=== PATIENT | male | born 1980 | race Caucasian/White ===

== ENCOUNTER 2020-03-30 02:34 | Emergency (ER) | payer BC ==
[~2020-03-30] VITALS: Ht 185.4 cm; Wt 108.9 kg
[~2020-03-30 02:34] MED LIST: FLEXERIL PO; FLOMAX0.4 MG PO; HYDROCODONE-APA1 TA1 PO; NOHOMEMEDICATIONS; NORCO 5-325 TA1 EACH PO; PEPCID AC20 M1 PO; ZOFRAN ODT4 MG PO
[2020-03-30 03:01] LABS: ABSOLUTE BASOPHILS 0.1 thou/uL (0.0-0.2); ABSOLUTE EOSINOPHILS 0.1 thou/uL (0.0-0.7); ABSOLUTE LYMPHOCYTES 2.6 thou/uL (0.8-5.3); ABSOLUTE MONOCYTES 0.8 thou/uL (0.0-1.2); ABSOLUTE NEUTROPHILS 8.8 thou/uL (1.6-8.1); BASOPHILS 0.7 %; EOSINOPHILS 0.9 %; HEMATOCRIT 48.8 % (42.0-52.0); HEMOGLOBIN 17.3 gm/dL (14.0-18.0); LYMPHOCYTES 21.2 %; MCH 31.7 pg (26.0-34.0); MCHC 35.5 g/dL (28.0-37.0); MCV 89.2 fL (80.0-100.0); MONOCYTES 6.3 %; MPV 7.5 fl. (7.2-11.1); NUCLEATED RBCS 0 /100WBC; PLATELET COUNT* 348 thou/uL (150-400); POLYS 70.9 %; RBC 5.47 mil/uL (4.50-6.00); WBC 12.4 thou/uL (4.0-11.0)
[2020-03-30] MEDS ORDERED: [UNRECOGNIZED DRUG - REMARK] (03:12)
[2020-03-30 03:19] LABS: CALCIUM 8.3 mg/dL (8.5-10.1); CREATININE 0.9 mg/dL (0.6-1.3); POTASSIUM 3.5 mmol/L (3.5-5.1)
[2020-03-30 03:23] LABS: TOTAL BILIRUBIN 0.4 mg/dL (<0.1-1.0); TOTAL PROTEIN 8.3 g/dL (6.4-8.2)
[2020-03-30 03:26] LABS: AMP/METHAMP Negative (Negative); BARBITURATES Negative (Negative); BENZODIAZEPINES Negative (Negative); COCAINE Negative (Negative); METHADONE Negative (Negative); OPIATES Negative (Negative); PCP Negative (Negative); THC POSITIVE (Negative)
[2020-03-30] MEDS ORDERED: ZOFRAN ODT4 MG PO (05:44)
[2020-03-30] MEDS ORDERED: CARAFATE1 GM PO (05:44)
[2020-03-30] MEDS ORDERED: LORCET 5-325 M1 EACH PO (05:44)
[2020-03-30 06:27] VITALS: BP 115/73
== END 2020-03-30 07:06 | disposition home or self-care (01) ==
LOC: M.ERS 02:34
PROVIDERS: Emergency Medicine
DX: K29.70 Gastritis, unspecified, without bleeding (principal); F12.10 Cannabis abuse, uncomplicated; Z87.442 Personal history of urinary calculi; Z79.899 Other long term (current) drug therapy; Z88.8 Allergy status to other drugs, medicaments and biological substances